=== PATIENT | female | born 1955 | race Caucasian/White ===

== ENCOUNTER → 2019-08-10 13:29 | Outpatient (CLI) | payer BC, SELFPAY ==
--- NOTE | ~2019-08-10 | MM_ITS ---
EXAMINATION: MM screening obed BI w joseph HISTORY: Screening mammogram TECHNIQUE: Craniocaudal and mediolateral oblique 3-D tomosynthesis images were obtained and synthetic 2-D images were generated. CAD analysis was submitted and interpreted. COMPARISON: 06/04/2016 BREAST PARENCHYMAL COMPOSITION: The breasts are heterogeneously dense, which may obscure small masses . FINDINGS: There is no evidence of suspicious mass, calcification, or architectural distortion to sugg est malignancy in either breast. There has been no suspicious interval change. IMPRESSION: 1. No mammographic evidence of malignancy. 2. Recommend routine screening mammography in one year. BI-RADS Category 1: Negative Reviewed, dictated and finalized at location A. [employer]
== END ==
PROVIDERS: Visit Provider Obstetrics & Gynecology
DX: Z12.31 Encounter for screening mammogram for malignant neoplasm of breast (principal)
CPT/HCPCS: 77063; 77067

== ENCOUNTER 2020-12-22 14:41 | Observation (INO) | payer BC, SELFPAY ==
[2020-12-22] VITALS (14 sets, daily range): BP systolic 119–146; BP diastolic 56–73; PULSE 92–105; RESP 10–22; TEMP 35.9–36.7; O2SAT 95–100; BMI 22.1
--- NOTE | ~2020-12-22 | XR_ITS ---
EXAMINATION: XR chest 1V portable EXAM DATE: 12/22/2020 17:04 INDICATION: Palpitation, Near Syncope today, Feeling weak, on dialysis. TECHNIQUE: Portable AP frontal chest x-ray was obtained. There is no prior study for comparison. FINDINGS: Mild hyperinflation. The lungs are clear. There are no pleural effusions. Cardiac silhoue tte is prominent but magnified on this AP technique. There is no pneumothorax suspected. The bones and soft tissues are unremarkable. IMPRESSION: No acute cardiopulmonary findings. Reviewed, dictated and finalized at location A.
--- NOTE | 2020-12-22 14:55 | ECG_ITS ---
Measurements Intervals [place] Rate: 102 P: 65 NH: 131 QRS: 33 QRSD: 83 T: 65 QT: 349 QTc: 456 Interpretive Statements SINUS TACHYCARDIA LEFT ATRIAL ENLARGEMENT INCOMPLETE RIGHT BUNDLE BRANCH BLOCK BORDERLINE R WAVE PROGRESSION, ANTERIOR LEADS BORDERLINE ST-T WAVE ABNORMALITY- LAT/HIGH LAT LEADS BORDERLINE ECG Electronically Signed On 12-22-2020 15:40:00 CDT by iNranjan Engle D.O.
--- NOTE | 2020-12-22 15:37 | ED.GENADULT ---
HPI - General Adult General Chief complaint: Syncope Stated complaint: near syncope Time Seen by Provider: 12/22/20 14:44 Source: patient, family and RN notes reviewed Limitations: no limitations History of Present Illness HPI narrative: Patient is 65 years old white female presents with intermittent passing I would like feeling, left chest pain, started last night, has been off and on since. Patient also vomited twice last night of foamy stuff. History of intermittent cough for the last 2 to 3 weeks. Currently patient feeling that her heart flip flop. History of hypertension, hyperlipidemia, hemodialysis, last 1 was yesterday, the renal failure secondary to unique disease of the kidney. [facility] at [facility], dialysis started on December 01. Patient does not smoke or drink or uses drugs. Patient is fully vaccinated for COVID-19. Patient monitor showing tachycardia 110 -145 beats per minute while I am in the room.. Patient is telling me since the beginning of dialysis and to now not been feeling well, general weakness, long hours sleep, intermittent nausea, intermittent vomiting, palpitation. Tomorrow dialysis was canceled. Patient was told that her body cannot take frequent dialysis. Related Data Home Medications Medication Instructions Recorded Confirmed B complex-vitamin C-folic acid 1 tablet PO DAILY 12/22/20 [Renal Vitamin] calcium citrate [Citracal] 500 mg PO BID 12/22/20 furosemide 80 mg PO DAILY 12/22/20 lisinopril 20 mg PO DAILY 12/22/20 rosuvastatin [Crestor] 40 mg PO DAILY 12/22/20 Allergies Allergy/AdvReac Type Severity Reaction Status Date / Time atorvastatin Allergy Unknown Unknown Verified 12/22/20 14:54 Review of Systems Review of Systems: Narrative: CONSTITUTIONAL: Denies fever, chills, or sweats. EYES: Denies visual changes, redness, or discharge. ENT: Denies rhinorrhea, congestion, sore throat, or otalgia. CARDIOVASCULAR: Denies chest pain, palpitations, or edema. RESPIRATORY: Denies cough or dyspnea. GASTROINTESTINAL: Denies abdominal pain, nausea, vomiting, or diarrhea. GENITOURINARY: Denies dysuria or hematuria. SKIN: Denies rash or itching. MUSCULOSKELETAL: Denies back pain, joint pain, or myalgia. NEUROLOGIC: Denies headache, numbness, or weakness. PSYCHIATRIC: Denies anxiety or depression. [facility] Social History Social History Gender identity (if verbalized by the patient): Female Exam Narrative: Exam Narrative: General appearance: Well-developed, well-nourished Skin: Normal color Head: Normocephalic, nontraumatic Eyes: Clear conjunctiva ENT: Oropharynx normal, ears normal, nose normal Neck: Supple, nontender Chest and respiratory: Airway patent, no respiratory distress, no accessory muscle use Heart: Tachycardia Abdomen: Soft, nontender, no organomegaly, quiet bowel sounds Vascular: Normal peripheral pulses, normal capillary refill. Musculoskeletal: Normal range of motion, nontender back Neurologic: Alert and oriented ?3, CLAIMS REPRESENTATIVE is normal as tested, no gross motor deficit Course Vital Signs Vital signs: Vital Signs Temperature 36.7 C 12/22/20 14:40 Pulse Rate 105 H 12/22/20 14:40 Respiratory Rate 10 L 12/22/20 14:40 Blood Pressure 145/73 H 12/22/20 14:40 Pulse Oximetry 100 12/22/20 14:40 Temperature 36.7 C 12/22/20 14:40 Pulse Rate 103 H 12/22/20 15:02 Respiratory Rate 10 L 12/22/20 14:40 Blood Pressure 146/73 H 12/22/20 15:02 Pulse Oximetry 100 12/22/20 14:40 Medical Decision Making Vital Signs Vital Signs: Vital Signs Temperature 36.7 C 12/22/20 14:40 Pulse Rate 105 H 12/22/20 14:40
[2020-12-22 15:49] LABS: Basophils Absolute Auto 0.1 K/mm3 (0.0-0.1); Basophils Percent Auto 0.5 % (0.2-1.2); Eosinophils Absolute Auto 0.6 K/mm3 (0-0.3); Eosinophils Percent Auto 5.8 % (0-4.4); Hematocrit 30.8 % (37.0-47.0); Immature Granulocyte Absolute 0.02 K/mm3 (0.00-0.031); Immature Granulocyte Percent A 0.2 % (0-0.5); Lymphocytes Absolute Auto 1.55 K/mm3 (0.9-3.2); Lymphocytes Percent Auto 15.6 % (18.3-44.2); Mean Corpuscular HGB Conc 32.5 g/dl (32-36); Mean Corpuscular Hemoglobin 30.1 pg (26-34); Mean Corpuscular Volume 92.8 fl (80-100); Mean Platelet Volume 9.3 fl (7.4-10.4); Monocytes Absolute Auto 1.3 K/mm3 (0.1-0.6); Monocytes Percent Auto 13.4 % (2.6-8.5); Neutrophils Absolute Auto 6.4 K/mm3 (1.3-6.7); Neutrophils Percent Auto 64.5 % (45.5-73.1); Platelet Count Result 165 k/mm3 (150-375); Red Blood Count 3.32 M/mm3 (4.2-5.4); Red Cell Distribution Width 13.8 % (11.5-14.5); White Blood Count 9.9 K/mm3 (4.5-10.0)
[2020-12-22 16:04] LABS: Alanine Aminotransferase 23 U/L (4-35); Albumin Level 4.2 g/dL (3.5-5.1); Alkaline Phosphatase 97 U/L (38-126); Anion Gap 11 mmol/L (8-16); Aspartate Amino Transferase 32 U/L (14-36); Bilirubin,Total 0.7 mg/dL (0.2-1.3); Blood Urea Nitrogen 52 mg/dL (7-17); Calcium 10.3 mg/dL (8.4-10.2); Carbon Dioxide 26 mmol/L (22-30); Chloride 104 mmol/L (98-107); Estimated CRCL calculation 8 ml/min; Estimated Glomerular Filt Rate 8; Glucose 91 mg/dL (65-105); Potassium 3.9 mmol/L (3.4-5.0); Sodium 141 mmol/L (137-145)
[2020-12-22] MEDS: LORazepam (*CRX) 0.5 MG TABLET 1 MG PO (17:19)
[2020-12-22 17:22] LABS: Alanine Aminotransferase 24 U/L (4-35); Albumin Level 4.3 g/dL (3.5-5.1); Alkaline Phosphatase 92 U/L (38-126); Aspartate Amino Transferase 34 U/L (14-36); Bilirubin,Total 0.7 mg/dL (0.2-1.3)
--- NOTE | 2020-12-22 17:30 | PC.NURSE ---
Patient transported to room 244 from ER. Patient moved to the bed and she had a severe left leg spasm. Assisted with stretching and massage. Patients pain eased. She said she has been having these more frequently recently.
--- NOTE | 2020-12-22 18:57 | PC.NURSE ---
Patient states she goes to dialysis Saturday, Saturday and Fridays at [facility].
--- NOTE | 2020-12-22 19:24 | PM.IMHP ---
H&P: HPI History of Present Illness Date/Time: 12/22/20 19:24 This is a 65-year-old female patient who has end-stage renal disease and recently started dialysis December 01 of this year. The patient typically sees her doctors at [facility]. the patient came in today because she felt like she was going to pass out. She said that she had intermittent feelings like this with left chest pain and has been on and off since last night. She also vomited last night foamy stuff. The patient stated that she felt her heart racing and felt like it was flip-flopping in her chest. Her last dialysis was yesterday she typically goes to dialysis on Saturday. Patient was having a heart rate anywhere from 07/03 145 per minute on the monitor in the emergency room. Tomorrow's dialysis was canceled. Nephrology was consulted here. The patient was given Ativan in the emergency room. The patient stated she had a similar episode like this in August in her legal editor at [place] was trying to determine whether not to start her on a beta-chio and they cannot find the cause of her palpitations and rapid heart rate. EKG here shows sinus tachycardia incomplete right bundle-branch. patient is being admitted for observation services on the date of service 12/22/20. Chief Complaint: Near syncopal episode Review of Systems Review of Systems: All systems reviewed & are unremarkable except as noted in HPI and below Constitutional: Constitutional: Reports as per HPI and Reports no additional constitutional complaints Eyes: Eyes: Reports as per HPI and Reports no additional eye complaints ENT: Reports system reviewed and no additional complaints, except as documented and Reports Normal hearing present Cardiovascular: Cardiovascular: Reports no additional cardiovascular complaints Respiratory: Respiratory: Reports no additional respiratory complaints and Reports no additional respiratory complaints Gastrointestinal: Gastrointestinal: Reports as per HPI and Reports no additional gastrointestinal complaints Musculoskeletal: Musculoskeletal: Reports no additional musculoskeletal complaints Integumentary/Breasts: Skin/Breast: Reports system reviewed and no additional complaints, except as docu and Reports as per HPI Neurologic: Reports system reviewed and no additional complaints, except as documented, Reports as per HPI and Reports Normal hearing present Psychiatric: Psychiatric: Reports no additional psychiatric complaints and Reports as per HPI Endocrine: Endocrine: Reports no additional endocrine complaints Hematologic/Lymphatic: Hematologic/Lymphatic: Reports no additional hematologic/lymphatic complaints Allergic/Immunologic: Allergic/Immunologic: Reports no additional allergic/immunologic complaints PMFSH Past Medical History Medical History (Updated 12/22/20 @ 19:52 by Sofia Garcia NP) AV fistula ESRD (end stage renal disease) dialysis Saturday HTN (hypertension) with goal to be determined Hyperlipidemia Surgical History Surgical History (Updated 12/22/20 @ 19:37 by Sofia Garcia NP) History of appendectomy History of tonsillectomy Hx of cholecystectomy Family History Family History (Updated 12/22/20 @ 19:38 by Sofia Garcia NP) Mother Cerebrovascular accident Father Diabetes mellitus Social History Social History (Updated 12/22/20 @ 19:40 by Sofia Garcia NP) Social History: The patient is and lives with him. The patient stated that she quit smoking 30 years ago. she is a full code and she has no children. 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er attorney general for healthcare. Smoking packs per day: 1 Smoking cigarettes per day: 20.0 Smoking status: Former smoker Tobacco type: cigarettes Alcohol intake: former Drinks per week: 2 Substance use: never Substance use type: does not use Gender identity (if verbalized by the pa
[2020-12-22] MEDS: FUROSEMIDE 40 MG TABLET PO (20:28)
[2020-12-22] MEDS: LOSARTAN POTASSIUM 25 MG TABLET PO (20:28)
[2020-12-23] VITALS (22 sets, daily range): BP systolic 80–150; BP diastolic 37–84; PULSE 70–156; RESP 12–22; TEMP 35.9–36.7; O2SAT 97–100; BMI 22.1
--- NOTE | 2020-12-23 | ECHO_ITS ---
Patient Info Name: Guerita Durbin Age: 65 years : 1955 Gender: Female Ht: 62 in Wt: 121 lbs BSA: 1.55 m2 HR: 93 bpm BP: 130 / 57 mmHg Heart Rhythm: Sinus Rhythm Technical Quality: Good Exam Date: 12/23/2020 4:22 PM Exam Location: [facility] Pulmonary Exam Room: [facility] [place] Patient Status: Inpatient Admit Date: 12/22/2020 Staff Ordering Physician: Demetris Galvan MD Mechanical Supervisor: Lupe Collins RDCS Attending Provider: Jose Zamorano MD Referring Physician: Cole WEINBERG; Exam Type: CA echo doppler color flow Study Info Indications - a flutter Complete two-dimensional, color flow and Doppler transthoracic echocardiogram is performed. Summary 1. Complete two-dimensional, color flow and Doppler transthoracic echocardiogram is performed. 2. There is moderate concentric increased left ventricular wall thickness. 3. Left ventricular systolic function is hyperdynamic, estimated at 65-70%. 4. Left atrial chamber dimension is mildly enlarged. 5. No significant valvular abnormalities. Left Ventricle Left ventricular chamber dimension is normal. Left ventricular systolic function is hyperdynamic, estimated at 65-70%. There is moderate concentric increased left ventricular wall thickness. The left ventricular diastolic function is grade II diastolic dysfunction. Right Ventricle Right ventricular chamber dimension is normal. Left Atria Left atrial chamber dimension is mildly enlarged. Right Atria Right atrial chamber dimension is normal. Aortic Valve The aortic valve is normal. Pulmonic Valve The pulmonic valve is normal. Mitral Valve The mitral valve has normal leaflets. There is trace mitral valve regurgitation. Tricuspid Valve The tricuspid valve leaflets are normal. Pericardium/Pleural The pericardium appears normal. Aorta The aortic root size at the sinus of Valsalva is normal. Left Ventricular Outflow Tract Name Value Normal LVOT 2D LVOT Diameter 2.0 cm LVOT Doppler LVOT Peak Gradient 6 mmHg LVOT Mean Gradient 4 mmHg LVOT VTI 23 cm LVOT VTI/AV VTI Ratio 0.7 LVOT Stroke Volume 71 ml LVOT CO 18.0 l/min LVOT CI 11.6 l/min/m2 Pulmonic Valve Name Value Normal PV Doppler PV Peak Gradient 5 mmHg Mitral Valve Name Value Normal MV Doppler MV Decel Arthur 579 cm/s2 MV PHT 5
[2020-12-23 06:20] LABS: Basophils Absolute Auto 0.1 K/mm3 (0.0-0.1); Basophils Percent Auto 0.6 % (0.2-1.2); Eosinophils Absolute Auto 0.7 K/mm3 (0-0.3); Eosinophils Percent Auto 7.1 % (0-4.4); Hematocrit 29.9 % (37.0-47.0); Hemoglobin 9.6 g/dL (12.0-15.0); Immature Granulocyte Absolute 0.03 K/mm3 (0.00-0.031); Immature Granulocyte Percent A 0.3 % (0-0.5); Lymphocytes Absolute Auto 1.69 K/mm3 (0.9-3.2); Lymphocytes Percent Auto 16.9 % (18.3-44.2); Mean Corpuscular HGB Conc 32.1 g/dl (32-36); Mean Corpuscular Hemoglobin 30.1 pg (26-34); Mean Corpuscular Volume 93.7 fl (80-100); Mean Platelet Volume 9.6 fl (7.4-10.4); Monocytes Absolute Auto 1.3 K/mm3 (0.1-0.6); Monocytes Percent Auto 12.8 % (2.6-8.5); Neutrophils Absolute Auto 6.3 K/mm3 (1.3-6.7); Neutrophils Percent Auto 62.3 % (45.5-73.1); Platelet Count Result 177 k/mm3 (150-375); Red Blood Count 3.19 M/mm3 (4.2-5.4); Red Cell Distribution Width 13.7 % (11.5-14.5)
[2020-12-23 06:33] LABS: Alanine Aminotransferase 19 U/L (4-35); Albumin Level 3.7 g/dL (3.5-5.1); Alkaline Phosphatase 80 U/L (38-126); Anion Gap 13 mmol/L (8-16); Aspartate Amino Transferase 24 U/L (14-36); Bilirubin,Total 0.6 mg/dL (0.2-1.3); Blood Urea Nitrogen 60 mg/dL (7-17); Calcium 9.6 mg/dL (8.4-10.2); Carbon Dioxide 23 mmol/L (22-30); Chloride 104 mmol/L (98-107); Estimated CRCL calculation 8 ml/min; Estimated Glomerular Filt Rate 8; Glucose 90 mg/dL (65-105); Potassium 4.2 mmol/L (3.4-5.0); Sodium 140 mmol/L (137-145)
--- NOTE | 2020-12-23 10:07 | ECG_ITS ---
Measurements Intervals [place] Rate: 150 P: SD: 0 QRS: 32 QRSD: 83 T: 60 QT: 256 QTc: 405 Interpretive Statements ATRIAL FLUTTER/TACHYCARDIA WITH RAPID VENTRICULAR RESPONSE INCOMPLETE RIGHT BUNDLE BRANCH BLOCK NONSPECIFIC ST & T-WAVE ABNORMALITY- ANTEROLAT/HIGH LAT LEADS ABNORMAL ECG Electronically Signed On 12-23-2020 13:05:44 CDT by Niranjan Engle D.O.
[2020-12-23 10:16] LABS: Hepatitis B Surface Antigen Negative (Negative)
--- NOTE | 2020-12-23 10:35 | PC.NURSE ---
Patients monitor tech reading SVT, rate at 200's, sustaining. Lulu Barragan called and received orders for metoprolol IVP 5mg X1 prior to transferring patient to IMU. BP checked and is hypotensive, 80's/40's patient complaining of chest pain. Rapid response called.
--- NOTE | 2020-12-23 10:36 | ECG_ITS ---
Measurements Intervals [place] Rate: 96 P: 69 UT: 138 QRS: 30 QRSD: 77 T: 61 QT: 363 QTc: 461 Interpretive Statements SINUS RHYTHM VENTRICULAR PREMATURE COMPLEX POSSIBLE LEFT ATRIAL ENLARGEMENT INCOMPLETE RIGHT BUNDLE BRANCH BLOCK BASELINE ARTIFACT- AVL BORDERLINE ECG Electronically Signed On 12-23-2020 13:06:44 CDT by Niranjan Engle D.O.
[2020-12-23 10:42] LABS: Hepatitis B Surface Anti Res Positive
[2020-12-23 10:54] LABS: Lactic Acid Reflex 1.2 mmol/L (0.7-2.1)
[2020-12-23] MEDS: SODIUM CHLORIDE 0.9% IV 250 ML 999 ML IV CONT (10:55)
--- NOTE | 2020-12-23 10:59 | PC.NURSE ---
This patient, Guerita Durbin, was received from [ 244 into 206-2 ] on 12/23/20 at 1059. Patient/family oriented to unit policies and routines
[2020-12-23] MEDS: VITAMIN B CMPLX/VIT C/FOLIC AC 1 CAPSULE 1 CAP PO (11:08)
[2020-12-23] MEDS: calcitrioL 0.25 MCG CAPSULE PO (11:09)
[2020-12-23] MEDS: ROSUVASTATIN 10 MG TABLET 20 MG PO (11:09)
[2020-12-23 11:13] LABS: Troponin I 0.119 ng/mL (0.000-0.034)
--- NOTE | 2020-12-23 12:28 | PC.NURSE ---
Pt transferred to IMU room 206 per bed. Report given to Geovanny IBARRA.
--- NOTE | 2020-12-23 14:14 | PM.CNNEP ---
Assessment and Plan Assessment and plan (1) ESRD (end stage renal disease): Code(s): N18.6 - End stage renal disease Status: Chronic Assessment and Plan: attempted HD today discontinued due to #2 no critical electrolytes, volume overload, or uremia at this time tentatively plan HD on Saturday if remains hospitalized (2) Tachycardia: Code(s): R00.0 - Tachycardia, unspecified Status: Acute Assessment and Plan: Cardiology consulted follow telemetry (3) Near syncope: Code(s): R55 - Syncope and collapse Status: Acute Assessment and Plan: related to #2(?) follow symptoms while hositalized Will continue to follow. History of Present Illness Reason for Consult Consult date: 12/23/20 Reason for consult: end stage renal disease Chief Complaint Chief complaint: near syncope/hemodialysis patient History of Present Illness Narrative: The patient is a 65-year-old female with a past medical history as outlined below who presented to [facility] ER with complaitns of palpitations and sensation she was going to pass out. The majority of her medical care is through [facility] so I do not have any previous records or information to compare to with regard to her complaints and history. The patient states that she has had intermittent feelings of left chest pain in association with palpitations for the last several days if Not months without a clear etiology. She apparently was seen by Cardiology at [facility] with a possible empiric trial of beta blockers since they were unable to find a specific cause of these symptoms either. She also reports that sometimes during her dialysis treatments she has episodes of palpitations were heart rate goes up to as high as 180 causing her to feel quite bad and ending her dialysis treatment early. Because of these constellation of symptoms, she was admitted the hospital for further evaluation and therapy. Since admission she had been doing reasonably well but then dialysis was attempted earlier today with recurrence of her palpitations and racing heart which was confirmed by telemetry which led to her dialysis treatment being aborted. She since appears to be feeling somewhat better at this time. Renal consultation was requested due to her end-stage renal disease. 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 She is currently training for home hemodialysis at this time as well. Her last dialysis treatment was on Saturday (12/21/20) and there is a concern that she may have had too much fluid removed during that treatment which may potentiate some of these symptoms. Currently, she does not appear in any acute distress at this time. Review of Systems Review of Systems: Narrative: As per HPI. [facility] Past Medical History Medical History (Updated 12/22/20 @ 19:52 by Sofia Garcia NP) AV fistula ESRD (end stage renal disease) dialysis Saturday HTN (hypertension) with goal to be determined Hyperlipidemia Surgical History Surgical History (Updated 12/22/20 @ 19:37 by Sofia Garcia NP) History of appendectomy History of tonsillectomy Hx of cholecystectomy Family History Family History (Updated 12/22/20 @ 19:38 by Sofia Garcia NP) Mother Cerebrovascular accident Father Diabetes mellitus Social History Social History (Updated 12/22/20 @ 19:40 by Sofia Garcia NP) Social History: The patient is and lives with him. The patient stated that she quit smoking 30 years ago. she is a full code and she has no children. 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er securities attorney for heal
--- NOTE | 2020-12-23 14:52 | PM.CNCAR ---
Assessment and Plan Additional Plan This is a 65-year-old lady with: A history of tachycardia and palpitations for something like a couple of years which up until now has not been specifically diagnosed. She had an episode this morning while in the hospital here and she appears to have atypical atrial flutter with rather rapid ventricular response. She gives a very good history of having no other significant heart disease and having negative stress echocardiograms on at least a couple of occasions downtown at [place] for she is followed the list as a renal transplant recipient. She was extremely tachycardic probably resulting in the symptoms of chest pain during this episode. I am going to recommend initiating antiarrhythmic therapy with flecainide. I will start her on 100 mg q.12 hours and this decision will of course keep her in the hospital for a couple of days. If she has a good clinical response she can be discharged and follow up with her verification manager at [facility]. I will order a Doppler echocardiogram while she is here. Demetris Galvan MD [facility] History of Present Illness History of Present Illness Consult date/time: 12/23/20 14:52 Reason For Visit: near syncope/hemodialysis patient Narrative: this is a very pleasant 65-year-old lady that I am seeing at the request of the hospitalist to assist with managing atrial tachyarrhythmias. The patient's electrocardiograms demonstrate evidence of atrial flutter with rapid ventricular response earlier today. She states that she came to the hospital after experiencing symptoms of palpitations with tachycardia couple of times recently over the last several days. She is concerned about this and actually has spoken to the physicians that manage her case at [facility] about symptoms like this on several occasions. She indicated at 1 time she was hospitalized over there with symptoms like this and on telemetry there were no arrhythmias discovered. She has a history of end-stage renal disease she says due to a genetic mutation and is on the renal transplant list at [facility]. She also because of that follows with a verification manager to does periodic stress testing on her. She typically has a stress echo she says about once a year and they are consistently normal. When she has episodes of tachycardia and palpitations she does not have any other significant distress. Today she had an episode in the hospital that occurred while she was at an another unit there was associated with some chest pain she was very tachycardic at that time and her ECG appears to be most consistent with atypical atrial flutter with very rapid ventricular response. She is now spontaneously back in normal sinus rhythm and is essentially asymptomatic. She was 1st told of evidence of significant renal disease when she was in the [place] menopausal years. She states that that was followed for a number of years and became end-stage last month sheath says that on December 01 is when she was started on hemodialysis. Review of Systems Constitutional: Constitutional: Reports weakness Eyes: Eyes: Reports no additional eye complaints ENT: Reports system reviewed and no additional complaints, except as documented Cardiovascular: Cardiovascular: Reports as per HPI and Reports palpitations Respiratory: Respiratory: Reports no additional respiratory complaints Gastrointestinal: Gastrointestinal: Reports no additional gastrointestinal complaints Musculoskeletal: Musculoskeletal: Reports no additional musculoskeletal complaints Integumentary/Breasts: Skin/Breast: Reports system reviewed and no additional complaints, except as docu Endocrine: Endocrine: Reports no additional endocrine complaints Hematologic/Lymphatic: Hematologic/Lymphatic: Reports no additional hematologic/lymphatic complaints Allergic/Immunologic: Allergic/Immunologic: Reports no additional allergic/immunologic complaints [facility] Past Medical History Medical History (Updated
--- NOTE | 2020-12-23 16:47 | PM.IMPN ---
Progress Note: A&P Assessment and Plan (1) Near syncope: Code(s): R55 - Syncope and collapse Status: Acute Assessment and Plan: likely due to her intermittent SVTs. Continue to monitor or telemetry (2) ESRD (end stage renal disease): Code(s): N18.6 - End stage renal disease Status: Chronic Assessment and Plan: Dialysis Saturday. Her dialysis was canceled for tomorrow. I did request for her records from [facility]. We also consulted life insurance underwriter here. She is also on Lasix b.i.d.. (3) HTN (hypertension) with goal to be determined: Code(s): I10 - Essential (primary) hypertension Status: Chronic Assessment and Plan: Continue with losartan (4) Hyperlipidemia: Code(s): E78.5 - Hyperlipidemia, unspecified Status: Chronic Assessment and Plan: continue with Crestor (5) Adjustment disorder with anxiety: Code(s): F43.22 - Adjustment disorder with anxiety Status: Acute Assessment and Plan: patient was given Ativan. (6) Tachycardia: Code(s): R00.0 - Tachycardia, unspecified Status: Acute Assessment and Plan: atrial flutter with RVR which converted spontaneously back to sinus rhythm this morning. Cardiology has been consulted for further evaluation of her rhythm. Echocardiogram ordered similar episodes has started since August and had seen director of development at [place] Subjective Date/time seen: 12/23/20 16:47 Interval history: no overnight event however while she was started on hemodialysis this morning her tachycardia started with her heart rate in 150s EKG showed atrial flutter stats supraventricular tachycardia. Dialysis was aborted due to her tachycardia. She gets symptomatic with this tachycardia with chest pain and palpitation this rhythm spontaneously converted back to sinus rhythm without any intervention. To splint to be started on Cardizem drip however was stopped due to spontaneous conversion to sinus rhythm. She was noted to be hypotensive in 80 systolic post this tachycardic this episode and was given 250 cc bolus of normal saline with subsequent improvement in her blood pressure Review of Systems Review of Systems: All systems reviewed & are unremarkable except as noted in HPI and below Exam Narrative: Exam Narrative: GENERAL: The patient is well developed, not in acute distress HEENT: Nonicteric sclerae, PERRLA, EOMI. Oropharynx clear. Moist mucous membranes. Conjunctivae appear well perfused. CHEST: Chest wall is nontender. HEART: tachycardic in the 150s without murmur, rubs, or gallops LUNGS: Clear to auscultation bilaterally. no respiratory distress ABDOMEN: Soft, positive bowel sounds, non-tender, no organomegaly. SKIN: No rash, no excessive bruising, petechiae, or purpura. NEUROLOGIC: Cranial nerves II-XII intact, alert and oriented x 3, no gross motor deficits EXTREMITIES: no edema, cyanosis or clubbing Objective Data Vital Signs Vital Signs: Vital Signs - 24 hr 12/22/20 16:51 12/22/20 17:00 12/22/20 18:08 Temperature 96.7 F L Pulse Rate 95 100 94 Respiratory Rate 18 18 Blood Pressure 133/63 134/58 L Pulse Oximetry 100 99 12/22/20 20:00 12/22/20 21:37 12/22/20 22:00 Temperature 96.8 F L 96.8 F L 96.8 F L Pulse Rate 99 100 92 Respiratory Rate 18 18 18 Blood Pressure 124/58 L 121/56 L 124/58 L Pulse Oximetry 98 100 98 12/23/20 00:00 12/23/20 04:00 12/23/20 07:18 Temperature 96.8 F L 97.4 F L Pulse Rate 86 90 90 Respiratory Rate 18 18 Blood Pressure 112/57 L 112/58 L 127/56 L Pulse Oximetry 98 97 12/23/20 08:00 12/23/20 09:07 12/23/20 10:25 Temperature 98.1 F Pulse Rate 81 95 Respiratory Rate 18 Blood Pressure 134/74 83/37 L Pulse Oximetry 12/23/20 10:43 12/23/20 11:06 12/23/20 11:10 Temperature 96.6 F L Pulse Rate 108 H 73 Respiratory Rate 22 H 18 Blood Pressure 80/40 L 130/57 L 83/37 L Pulse Oximetry 100 100
[2020-12-23] MEDS: FUROSEMIDE 40 MG TABLET PO (17:06)
[2020-12-23] MEDS: FLECAINIDE ACETATE 100 MG TABLET PO (20:42)
[2020-12-23] MEDS: LOSARTAN POTASSIUM 25 MG TABLET PO (20:42)
[2020-12-24] VITALS (20 sets, daily range): BP systolic 114–128; BP diastolic 54–67; PULSE 72–97; RESP 12–16; TEMP 36.2–36.5; O2SAT 99–100
[2020-12-24 05:47] LABS: Basophils Absolute Auto 0.1 K/mm3 (0.0-0.1); Basophils Percent Auto 0.5 % (0.2-1.2); Eosinophils Absolute Auto 0.7 K/mm3 (0-0.3); Eosinophils Percent Auto 7.3 % (0-4.4); Hematocrit 28.7 % (37.0-47.0); Hemoglobin 9.1 g/dL (12.0-15.0); Immature Granulocyte Absolute 0.03 K/mm3 (0.00-0.031); Immature Granulocyte Percent A 0.3 % (0-0.5); Lymphocytes Absolute Auto 2.23 K/mm3 (0.9-3.2); Lymphocytes Percent Auto 24.5 % (18.3-44.2); Mean Corpuscular HGB Conc 31.7 g/dl (32-36); Mean Corpuscular Volume 94.7 fl (80-100); Mean Platelet Volume 9.4 fl (7.4-10.4); Monocytes Percent Auto 10.9 % (2.6-8.5); Neutrophils Absolute Auto 5.1 K/mm3 (1.3-6.7); Neutrophils Percent Auto 56.5 % (45.5-73.1); Platelet Count Result 183 k/mm3 (150-375); Red Blood Count 3.03 M/mm3 (4.2-5.4); Red Cell Distribution Width 13.7 % (11.5-14.5); White Blood Count 9.1 K/mm3 (4.5-10.0)
[2020-12-24 06:10] LABS: Anion Gap 11 mmol/L (8-16); Blood Urea Nitrogen 58 mg/dL (7-17); Calcium 9.8 mg/dL (8.4-10.2); Carbon Dioxide 26 mmol/L (22-30); Chloride 102 mmol/L (98-107); Estimated CRCL calculation 7 ml/min; Estimated Glomerular Filt Rate 7; Glucose 97 mg/dL (65-105); Potassium 4.4 mmol/L (3.4-5.0); Sodium 139 mmol/L (137-145)
[2020-12-24] MEDS: VITAMIN B CMPLX/VIT C/FOLIC AC 1 CAPSULE 1 CAP PO (08:11)
[2020-12-24] MEDS: ROSUVASTATIN 10 MG TABLET 20 MG PO (08:11)
[2020-12-24] MEDS: FUROSEMIDE 40 MG TABLET PO ×2 (08:11→17:11)
[2020-12-24] MEDS: FLECAINIDE ACETATE 100 MG TABLET PO ×2 (08:11→21:07)
[2020-12-24] MEDS: calcitrioL 0.25 MCG CAPSULE PO (08:11)
--- NOTE | 2020-12-24 11:01 | PM.PNCARD ---
Progress Note: A&P Additional Plan 65-year-old lady with: Intermittent palpitations which is been occurring for a while with no specific diagnosis being established until yesterday when she developed atrial flutter with, atypical atrial flutter with RVR here in the hospital. She has been started on medical antiarrhythmic therapy in the form of flecainide. She has hyperdynamic left ventricular systolic function on echo and has no evidence of coronary disease with a number negative stress test done at [place] for she is on the waiting list for renal transplant. Flecainide will be continued. My anticipation will be discharged tomorrow after she has had her 4th dose if there are no signs of proarrhythmia. She will follow up with her physicians at [place]. She already follows with Cardiology there and so follow-up in our office here would be redundant and will not be scheduled. Demetris Galvan MD [facility] Subjective Date/time seen: date of service:12/24/20 11:01 Interval history: Follow-up visit in this 65-year-old lady with: Atypical atrial flutter with rapid ventricular response noted yesterday. Patient has been placed on medical antiarrhythmic therapy in the form of flecainide. She has had no arrhythmias since the drug was started yesterday she had her 2nd dose this morning. Resting comfortably in bed and reading a book on her computer upon my arrival to see her. Exam Const: General: comfortable and no acute distress HENMT: Mouth: Yes moist mucous membranes Eyes: Sclera: sclerae normal Pupils: Equal, round and reactive pupils present Neck: Neck: supple and no JVD Resp: Effort & Inspection: normal respiratory effort Auscultation: clear to auscultation bilaterally Cardio: Rate: regular rate Rhythm: regular rhythm Other: Grade 2/6 holosystolic murmur at the left sternal border GI: GI Palp: Yes Soft to palpation Auscultation: normal bowel sounds Skin: General skin exam: normal color Neuro: Cognition (Neuro): normal cognition Extrem: General: normal to inspection Objective Data Vital Signs Vital Signs: Vital Signs - 24 hr 12/23/20 11:06 12/23/20 11:10 12/23/20 11:13 Temperature 36.2 C L Pulse Rate 73 70 Respiratory Rate 18 18 Blood Pressure 130/57 L 83/37 L 130/57 L Pulse Oximetry 100 100 07/02/21 12:00 12/23/20 16:00 12/23/20 20:00 Temperature 36.6 C 36.3 C L Pulse Rate 93 88 85 Respiratory Rate 12 16 Blood Pressure 118/58 L 118/56 L Pulse Oximetry 100 100 12/23/20 20:41 12/23/20 20:42 12/23/20 22:00 Temperature Pulse Rate 87 96 Respiratory Rate Blood Pressure 119/62 126/59 L Pulse Oximetry 12/23/20 23:25 12/24/20 00:00 12/24/20 02:00 Temperature 36.4 C Pulse Rate 92 85 72 Respiratory Rate 16 Blood Pressure 116/61 Pulse Oximetry 100 12/24/20 03:42 12/24/20 04:00 12/24/20 06:00 Temperature 36.2 C L Pulse Rate 86 87 83 Respiratory Rate 16 Blood Pressure 114/58 L Pulse Oximetry 100 12/24/20 08:00 12/24/20 08:03 12/24/20 08:04 Temperature 36.4 C Pulse Rate 96 Respiratory Rate 12 Blood Pressure 115/60 116/54 L 120/55 L Pulse Oximetry 100 12/24/20 08:11 12/24/20 09:44 Temperature Pulse Rate 88 83 Respiratory Rate Blood Pressure Pulse Oximetry Intake/Output Intake/Output: Intake & Output 12/21/20 12/22/20 12/23/20 12/24/20 23:59 23:59 23:59 23:59 Intake Total 1120 240 Output Total 500 700 Balance 620 -460 Meds/Results Medications: Active Medications Generic Name Dose Route Start Last Admin Trade Name Mami PRN Reason Stop Dose Admin Calcitriol 0.25 mcg 12/23/20 09:00 12/24/20 08:11 Calcitriol 0.25 Mcg Capsule PO 0.25 mcg DAILY CHASE Administration Flecainide Acetate 100 mg 12/23/20 21:00 12/24/20 08:11 Flecainide Acetate 100 Mg Tablet PO 100 mg Q12HR CHASE Administration Furosemide 40 mg 12/22/20 19:45 12/24/20 08:11 Furosemide 40 Mg Tablet PO 40
--- NOTE | 2020-12-24 11:51 | PM.IMPN ---
Progress Note: A&P Assessment and Plan (1) Near syncope: Code(s): R55 - Syncope and collapse Status: Acute Assessment and Plan: likely due to her intermittent SVTs. Continue to monitor or telemetry Transient hypotension yesterday resolved with fluid bolus Likely due to intermittent atypical atrial flutter noted yesterday in the EKG. (2) ESRD (end stage renal disease): Code(s): N18.6 - End stage renal disease Status: Chronic Assessment and Plan: Dialysis Saturday. Her dialysis was canceled for tomorrow. I did request for her records from [facility]. We also consulted shredder operator here. She is also on Lasix b.i.d. Nephrology following for inpatient dialysis need. (3) HTN (hypertension) with goal to be determined: Code(s): I10 - Essential (primary) hypertension Status: Chronic Assessment and Plan: Continue with losartan (4) Hyperlipidemia: Code(s): E78.5 - Hyperlipidemia, unspecified Status: Chronic Assessment and Plan: continue with Crestor (5) Adjustment disorder with anxiety: Code(s): F43.22 - Adjustment disorder with anxiety Status: Acute Assessment and Plan: patient was given Ativan. (6) Tachycardia: Code(s): R00.0 - Tachycardia, unspecified Status: Acute Assessment and Plan: atrial flutter with RVR which converted spontaneously back to sinus rhythm this morning. Cardiology has been consulted for further evaluation of her rhythm. Echocardiogram ordered similar episodes has started since August and had seen tag maker at [place] Echo reviewed Started on flecainide by cardiology No further episodes since start of flecainide ? Anticoagulation Subjective Date/time seen: 12/24/20 11:51 Interval history: No Overnight events. Patient was placed on flecainide. No further arrhythmias since then her blood pressure was stable. He feels a little dizzy no other complaints. Follow-up visit in this 65-year-old lady with: Review of Systems Review of Systems: All systems reviewed & are unremarkable except as noted in HPI and below Exam Narrative: Exam Narrative: GENERAL: The patient is well developed, not in acute distress HEENT: Nonicteric sclerae, PERRLA, EOMI. Oropharynx clear. Moist mucous membranes. Conjunctivae appear well perfused. CHEST: Chest wall is nontender. HEART: regular rate and rhythm, systolic murmur noted on left sternal border, no rubs, or gallops LUNGS: Clear to auscultation bilaterally. no respiratory distress ABDOMEN: Soft, positive bowel sounds, non-tender, no organomegaly. SKIN: No rash, no excessive bruising, petechiae, or purpura. NEUROLOGIC: Cranial nerves II-XII intact, alert and oriented x 3, no gross motor deficits EXTREMITIES: no edema, cyanosis or clubbing Objective Data Vital Signs Vital Signs: Vital Signs - 24 hr 12/23/20 12:00 12/23/20 16:00 12/23/20 20:00 Temperature 97.9 F 97.4 F L Pulse Rate 93 88 85 Respiratory Rate 12 16 Blood Pressure 118/58 L 118/56 L Pulse Oximetry 100 100 12/23/20 20:41 12/23/20 20:42 12/23/20 22:00 Temperature Pulse Rate 87 96 Respiratory Rate Blood Pressure 119/62 126/59 L Pulse Oximetry 12/23/20 23:25 12/24/20 00:00 12/24/20 02:00 Temperature 97.6 F Pulse Rate 92 85 72 Respiratory Rate 16 Blood Pressure 116/61 Pulse Oximetry 100 12/24/20 03:42 12/24/20 04:00 12/24/20 06:00 Temperature 97.1 F L Pulse Rate 86 87 83 Respiratory Rate 16 Blood Pressure 114/58 L Pulse Oximetry 100 12/24/20 08:00 12/24/20 08:03 12/24/20 08:04 Temperature 97.6 F Pulse Rate 96 Respiratory Rate 12 Blood Pressure 115/60 116/54 L 120/55 L Pulse Oximetry 100 12/24/20 08:11 12/24/20 09:44 Temperature Pulse Rate 88 83 Respiratory Rate Blood Pressure Pulse Oximetry Intake/Output Intake/Output: Intake & Output 12/21/20 12/22/20 12/23/20
--- NOTE | 2020-12-24 12:26 | PM.PNNEP ---
Progress Note: A&P Assessment and Plan (1) ESRD (end stage renal disease): Code(s): N18.6 - End stage renal disease Status: Chronic Assessment and Plan: attempted HD on Saturday but discontinued due to #2 no critical electrolytes, volume overload, or uremia at this time tentatively plan HD on Saturday if remains hospitalized (2) Tachycardia: Code(s): R00.0 - Tachycardia, unspecified Status: Acute Assessment and Plan: due to Aflutter with RVR Cardiology recommendations noted - on flecanide follow telemetry (3) Near syncope: Code(s): R55 - Syncope and collapse Status: Acute Assessment and Plan: related to #2(?) follow symptoms while hositalized Will continue to follow - would not be opposed to discharge tomorrow if otherwise medically stable. Subjective Date/time seen: 12/24/20 12:26 Appears to be doing relatively well; no apparent distress noted at this time; no episodes of syncope to report; telemetry noted atrial flutter with RVR which is the presumable cause of her palpitations/tachycardia. Exam Narrative: Exam Narrative: General: WD/WN female in NAD Heart: normal S1 and S2; no rub Lungs: clear to auscultation Abdomen: soft, nontender, nondistended, positive bowel sounds Extremities: no cyanosis or clubbing; no edema Skin: warm and dry Objective Data Vital Signs Vital Signs: Vital Signs Temp Pulse Resp BP Pulse Ox 12/24/20 11:58 36.4 C 85 12 124/63 100 12/24/20 09:44 83 12/24/20 08:11 88 12/24/20 08:04 120/55 L 12/24/20 08:03 116/54 L 12/24/20 08:00 36.4 C 96 12 115/60 100 12/24/20 06:00 83 12/24/20 04:00 87 12/24/20 03:42 36.2 C L 86 16 114/58 L 100 12/24/20 02:00 72 12/24/20 00:00 85 12/23/20 23:25 36.4 C 92 16 116/61 100 12/23/20 22:00 96 12/23/20 20:42 87 126/59 L 12/23/20 20:41 119/62 12/23/20 20:00 36.3 C L 85 16 118/56 L 100 12/23/20 16:00 36.6 C 88 12 118/58 L 100 Intake/Output Intake/Output: Intake & Output 12/21/20 12/22/20 12/23/20 12/24/20 23:59 23:59 23:59 23:59 Intake Total 1120 240 Output Total 500 700 Balance 620 -460 Meds/Results Medications: Active Medications Generic Name Dose Route Start Last Admin Trade Name Mami PRN Reason Stop Dose Admin Calcitriol 0.25 mcg 12/23/20 09:00 12/24/20 08:11 Calcitriol 0.25 Mcg Capsule PO 0.25 mcg DAILY CHASE Administration Flecainide Acetate 100 mg 12/23/20 21:00 12/24/20 08:11 Flecainide Acetate 100 Mg Tablet PO 100 mg Q12HR CHASE Administration Furosemide 40 mg 12/22/20 19:45 12/24/20 08:11 Furosemide 40 Mg Tablet PO 40 mg BID CHASE Administration Albumin Human 50 mls @ 999 mls/hr 12/23/20 06:50 Albutein IVPB 01/22/21 06:51 Q10M PRN HYPOTENSION Lidocaine/Prilocaine 1 each 12/22/20 19:25 Lidocaine/Prilocaine Cream 2.5-2.5% Tube TOPICAL PRN PRN PRIOR TO DIALYSIS Losartan Potassium 25 mg 12/22/20 21:00 12/23/20 20:42 Losartan Potassium 25 Mg Tablet PO 25 mg HS CHASE Administration Rosuvastatin Calcium 20 mg 12/23/20 09:00 12/24/20 08:11 Rosuvastatin 10 Mg Tablet PO 20 mg DAILY CHASE Administration Vitamin B Complex/Folic Acid 1 cap 12/23/20 09:00 12/24/20 08:11 Vitamin B Cmplx/Vit C/Folic Ac 1 Capsule PO 01/22/21 09:01 1 cap DAILY CHASE Administration Radiology Results: ITS Impressions Chest X-Ray 12/22/20 17:11 IMPRESSION: No acute cardiopulmonary findings. Labs Labs: Laboratory Tests 12/24/20 04:51 12/24/20 04:51
[2020-12-24] MEDS: LOSARTAN POTASSIUM 25 MG TABLET PO (21:07)
[2020-12-25] VITALS (9 sets, daily range): BP systolic 108–122; BP diastolic 46–63; PULSE 79–82; RESP 14–16; TEMP 35.7–36.4; O2SAT 100
[2020-12-25 05:35] LABS: Basophils Absolute Auto 0.1 K/mm3 (0.0-0.1); Basophils Percent Auto 0.6 % (0.2-1.2); Eosinophils Absolute Auto 0.6 K/mm3 (0-0.3); Eosinophils Percent Auto 5.7 % (0-4.4); Hemoglobin 8.9 g/dL (12.0-15.0); Immature Granulocyte Absolute 0.04 K/mm3 (0.00-0.031); Immature Granulocyte Percent A 0.4 % (0-0.5); Lymphocytes Absolute Auto 2.27 K/mm3 (0.9-3.2); Lymphocytes Percent Auto 22.9 % (18.3-44.2); Mean Corpuscular HGB Conc 31.8 g/dl (32-36); Mean Corpuscular Volume 94.3 fl (80-100); Mean Platelet Volume 9.3 fl (7.4-10.4); Monocytes Absolute Auto 0.9 K/mm3 (0.1-0.6); Monocytes Percent Auto 9.1 % (2.6-8.5); Neutrophils Absolute Auto 6.1 K/mm3 (1.3-6.7); Neutrophils Percent Auto 61.3 % (45.5-73.1); Platelet Count Result 198 k/mm3 (150-375); Red Blood Count 2.97 M/mm3 (4.2-5.4); Red Cell Distribution Width 13.5 % (11.5-14.5); White Blood Count 9.9 K/mm3 (4.5-10.0)
[2020-12-25 06:03] LABS: Anion Gap 14 mmol/L (8-16); Blood Urea Nitrogen 73 mg/dL (7-17); Carbon Dioxide 23 mmol/L (22-30); Chloride 100 mmol/L (98-107); Estimated CRCL calculation 6 ml/min; Estimated Glomerular Filt Rate 6; Glucose 94 mg/dL (65-105); Potassium 4.4 mmol/L (3.4-5.0); Sodium 137 mmol/L (137-145)
[2020-12-25] MEDS: VITAMIN B CMPLX/VIT C/FOLIC AC 1 CAPSULE 1 CAP PO (08:57)
[2020-12-25] MEDS: ROSUVASTATIN 10 MG TABLET 20 MG PO (08:57)
[2020-12-25] MEDS: FLECAINIDE ACETATE 100 MG TABLET PO (08:58)
[2020-12-25] MEDS: calcitrioL 0.25 MCG CAPSULE PO (08:58)
[2020-12-25] MEDS: FUROSEMIDE 40 MG TABLET PO (08:58)
--- NOTE | 2020-12-25 10:44 | PM.PNCARD ---
Progress Note: A&P Additional Plan 65-year-old lady with: History of intermittent tachy palpitations previously even eating diagnosis now she has been found to have atypical atrial flutter. She has been started on flecainide and seems to be tolerating the medication she has no sign of any proarrhythmia and I would recommend allowing her to be discharged today. She does have follow-up with physicians at [place] including the cardiology department and therefore does not require follow-up for this in my office here at [place]. She will be followed by the Nephrology / transplant service at [facility] as she is a candidate for a renal transplant as well. Demetris Galvan MD [facility] Subjective Date/time seen: date of service:12/25/20 10:44 Interval history: Follow-up visit in this 65-year-old lady with: Atypical atrial flutter with rapid ventricular response noted yesterday. Patient has been placed on medical antiarrhythmic therapy in the form of flecainide. She has had no arrhythmias since the drug was started yesterday she had her 2nd dose this morning. Resting comfortably in bed and reading a book on her computer upon my arrival to see her. Date of service 12/25/2020: The patient is offering no cardiovascular complaints or concerns. She does have the sense of nonspecific generalized weakness but no specific complaints. Telemetry looks fine since being placed on flecainide. Exam Const: General: comfortable and no acute distress Other: Very pleasant fit appearing lady thin no apparent distress of any kind. Visiting with her family upon entering the room. HENMT: Mouth: Yes moist mucous membranes Eyes: Sclera: sclerae normal Pupils: Equal, round and reactive pupils present Neck: Neck: supple and no JVD Other: Right carotid bruit is audible Resp: Effort & Inspection: normal respiratory effort Auscultation: clear to auscultation bilaterally Cardio: Rate: regular rate Rhythm: regular rhythm Other: Grade 2/6 holosystolic murmur at the left sternal border GI: Auscultation: normal bowel sounds Skin: General skin exam: normal color Neuro: Cranial nerves: Yes Equal, round and reactive pupils present Cognition (Neuro): normal cognition Extrem: General: normal to inspection Other: no edema good distal pulses. Objective Data Vital Signs Vital Signs: Vital Signs - 24 hr 12/24/20 11:58 12/24/20 12:00 12/24/20 14:00 Temperature 36.4 C Pulse Rate 85 93 97 Respiratory Rate 12 Blood Pressure 124/63 Pulse Oximetry 100 12/24/20 15:47 12/24/20 16:00 12/24/20 17:36 Temperature 36.5 C Pulse Rate 88 88 82 Respiratory Rate 14 Blood Pressure 115/67 Pulse Oximetry 100 12/24/20 20:00 12/24/20 21:07 12/24/20 22:00 Temperature 36.2 C L Pulse Rate 88 84 81 Respiratory Rate 16 Blood Pressure 128/64 Pulse Oximetry 100 12/24/20 23:09 12/25/20 00:00 12/25/20 02:00 Temperature 36.3 C L Pulse Rate 85 82 82 Respiratory Rate 16 Blood Pressure 115/54 L Pulse Oximetry 99 12/25/20 04:00 12/25/20 06:00 12/25/20 08:00 Temperature 36.4 C L 35.7 C L Pulse Rate 82 81 82 Respiratory Rate 16 14 Blood Pressure 122/53 L 121/63 Pulse Oximetry 100 100 12/25/20 09:17 12/25/20 09:18 12/25/20 10:00 Temperature Pulse Rate 82 Respiratory Rate Blood Pressure 108/46 L 111/49 L Pulse Oximetry Intake/Output Intake/Output: Intake & Output 12/22/20 12/23/20 12/24/20 12/25/20 23:59 23:59 23:59 23:59 Intake Total 1120 1270 240 Output Total 500 1300 1200 Balance 586 -42 -008 Meds/Results Medications: Active Medications Generic Name Dose Route Start Last Admin Trade Name Mami PRN Reason Stop Dose Admin Calcitriol 0.25 mcg 12/23/20 09:00 12/25/20 08:58 Calcitriol 0.25 Mcg Capsule PO 0.25 mcg DAILY CHASE Administration Flecainide Acetate 100 mg 12/23/20 21:00 12/25/20 08:58 Flecainide Acetate 100 Mg Tablet PO 100 mg Q12HR
--- NOTE | 2020-12-25 12:33 | PM.DS ---
DS: Admitting Diagnosis Admitting Diagnosis Admitting Diagnosis: Near syncope End stage renal disease on dialysis Tachycardia DS: Discharge Diagnosis Discharge Diagnosis (1) Near syncope: Code(s): R55 - Syncope and collapse Status: Acute Assessment and Plan: likely due to her intermittent SVTs. Continue to monitor or telemetry Transient hypotension yesterday resolved with fluid bolus Likely due to intermittent atypical atrial flutter noted yesterday in the EKG. (2) ESRD (end stage renal disease): Code(s): N18.6 - End stage renal disease Status: Chronic Assessment and Plan: Dialysis Saturday. Her dialysis was canceled for tomorrow. I did request for her records from [facility]. We also consulted material control clerk here. She is also on Lasix b.i.d. Nephrology following for inpatient dialysis need. (3) HTN (hypertension) with goal to be determined: Code(s): I10 - Essential (primary) hypertension Status: Chronic Assessment and Plan: Continue with losartan (4) Hyperlipidemia: Code(s): E78.5 - Hyperlipidemia, unspecified Status: Chronic Assessment and Plan: continue with Crestor (5) Adjustment disorder with anxiety: Code(s): F43.22 - Adjustment disorder with anxiety Status: Acute Assessment and Plan: patient was given Ativan. (6) Tachycardia: Code(s): R00.0 - Tachycardia, unspecified Status: Acute Assessment and Plan: atrial flutter with RVR which converted spontaneously back to sinus rhythm this morning. Cardiology has been consulted for further evaluation of her rhythm. Echocardiogram ordered similar episodes has started since August and had seen ballroom dancer at [place] Echo reviewed Started on flecainide by cardiology No further episodes since start of flecainide ? Anticoagulation DS: Summary Hospital Course Reason for hospitalization: near syncope Hospital Course: 65 years old female with history of multiple medical problems admitted complains of having a syncopal episode, patient was found tachyarrhythmias. Patient also history of ESRD. Cardiology was consulted patient can get benefit from flecainide. Patient tolerated for flecainide treatment very well. Today patient is feeling better so patient discharged stable condition. Status at Discharge Cognitive/behavioral status at discharge: Stable Functional status at discharge: independent ambulation Overall status at discharge: patient is back to baseline Time Spent with Patient Time attestation: Total time spent providing and/or coordinating discharge services: Time spent: Less than 30 minutes Exam Narrative: Exam Narrative: GENERAL: The patient is well developed, not in acute distress HEENT: Nonicteric sclerae, PERRLA, EOMI. Oropharynx clear. Moist mucous membranes. Conjunctivae appear well perfused. CHEST: Chest wall is nontender. HEART: regular rate and rhythm, systolic murmur noted on left sternal border, no rubs, or gallops LUNGS: Clear to auscultation bilaterally. no respiratory distress ABDOMEN: Soft, positive bowel sounds, non-tender, no organomegaly. SKIN: No rash, no excessive bruising, petechiae, or purpura. NEUROLOGIC: Cranial nerves II-XII intact, alert and oriented x 3, no gross motor deficits EXTREMITIES: no edema, cyanosis or clubbing Const: General: cooperative, healthy appearing, comfortable, no acute distress, well developed, alert, awake and Physically active Nutritional Appearance: average body habitus and well nourished Orientation/consciousness: oriented to person, oriented to place, oriented to time and patient oriented x3 Limitations: no limitations HENMT: Head: normal to inspection, No palpable skull fracture present, normocephalic and atraumatic Ears: hearing grossly normal bilaterally and external ears normal General nose exam: Normal external nose present and Normal nares present Eyes: General:
== END 2020-12-25 13:27 | disposition home or self-care (01) ==
LOC: ANHED 16:44 → ANH2MED 12-23 09:44 → ANHIMU 12-25 12:32 → ANH2MED 12-28 11:57 → ANHIMU 12-28 11:57
PROVIDERS: Internal Medicine Nephrology; Nurse Practitioner; Admitting Provider Internal Medicine; Emergency Provider Emergency Medicine; PCP Family Medicine Sports Medicine; Visit Provider Internal Medicine
DX: R55 Syncope and collapse (principal); I48.4 Atypical atrial flutter; I12.0 Hypertensive chronic kidney disease with stage 5 chronic kidney disease or end stage renal disease; N18.6 End stage renal disease; I95.9 Hypotension, unspecified; E78.5 Hyperlipidemia, unspecified; F43.22 Adjustment disorder with anxiety; Z90.49 Acquired absence of other specified parts of digestive tract; Z99.2 Dependence on renal dialysis; Z87.891 Personal history of nicotine dependence
CPT/HCPCS: 36415; 71045; 80048; 80053; 80076; 83605; 83735; 84443; 84484; 85025; 86706; 87340; 93005; 93306; 99285; A9270; G0257; G0378; J0131; J7030

== ENCOUNTER 2022-04-20 16:00 | Outpatient (CLI) | payer BC, SELFPAY ==
--- NOTE | 2022-04-20 16:14 | ECG_ITS ---
Measurements Intervals [place] Rate: 93 P: 67 DC: 139 QRS: 57 QRSD: 80 T: 79 QT: 329 QTc: 410 Interpretive Statements SINUS RHYTHM POSSIBLE RIGHT ATRIAL ENLARGEMENT [0.25mV P WAVE] POSSIBLE LEFT ATRIAL ENLARGEMENT [-0.1mV P WAVE IN V1/V2] RSR' IN V1/V2 NONSPECIFIC T-WAVE ABNORMALITY BORDERLINE ECG COMPARED TO ECG 12/23/2020 10:44:18 T-WAVE ABNORMALITY NOW PRESENT Electronically Signed On 04-20-2022 17:11:05 CDT by [place] M.D.
== END 2022-04-20 16:01 | disposition home or self-care (01) ==
LOC: ANHCARD 16:03
PROVIDERS: PCP Family Medicine Sports Medicine
DX: I48.0 Paroxysmal atrial fibrillation (principal); R00.0 Tachycardia, unspecified; R94.31 Abnormal electrocardiogram [ECG] [EKG]
CPT/HCPCS: 93005

== ENCOUNTER 2024-01-13 10:58 | Emergency (ER) | payer BC, SELFPAY ==
[2024-01-13] VITALS (7 sets, daily range): BP systolic 132–188; BP diastolic 56–72; PULSE 71; RESP 22; TEMP 36.3; O2SAT 98–100
--- NOTE | ~2024-01-13 | CT_ITS ---
CT abdomen pelvis wo con Ordering provider: Jelani Pisano MD History: 68 years Female with . abdominal pain LUQ . Comparison: None. Technique: CT abdomen and pelvis without IV and without oral contrast. Automated exposure control and iterative reconstruction technique were employed. The dose-length product was 243.08 mGy-cm. Findings: VISUALIZED LOWER CHEST: Normal. UPPER ABDOMINAL ORGANS: Liver: Normal. Gallbladder: Status post cholecystectomy. Spleen: Normal. Stomach/duodenum: Normal. Pancreas: Normal. Adrenals: Normal. Kidneys: Atrophic kidneys with large left renal cyst measuring 3.9 x 3.9 cm with calcification. Other smaller cysts are seen in the left kidney. Transplanted kidney in the right iliac fossa area. Cyst is seen in the transplanted kidney measuring 1.9 x 2.9 CNM. PELVIC ORGANS: The bladder is normal. BOWEL AND MESENTERY: Colon: Mild sigmoid diverticulosis without diverticulitis. Normal appendix. Small Bowel: Normal. No obstruction. Peritoneum/mesentery: No free air. Minimal pelvic Free fluid. Minimal fluid around the liver. Low low with no abnormal contrast. The dens and foot did not midzone. Intra-abdominal and No mesenteric lymp hadenopathy. RETROPERITONEUM: Mild atheromatous disease of the abdominal aorta. No retroperitoneal lymphadenopat hy. MUSCULOSKELETAL: Superficial soft tissues: The superficial soft tissues are normal. Bones: Normal spine. IMPRESSION: 1. Atrophic [place] kidneys with right pelvic transplanted kidney. Largest cyst in the left [place] ki dney with calcification suggestive of Bosniak type II. 2. Cyst in the right transplanted kidney. No evidence of diverticulitis, appendicitis or intestinal obstruction. 3. Minimal free fluid in the pelvis and around the liver. Reviewed, dictated and finalized at location A. IMPRESSION: 1. Atrophic [place] kidneys with right pelvic transplanted kidney. Largest cyst in the left [place] kidney with calcification suggestive of Bosniak type II. 2. Cyst in the right transplanted kidney. No evidence of diverticulitis, appen dicitis or intestinal obstruction. 3. Minimal free fluid in the pelvis and around the liver.
--- NOTE | 2024-01-13 11:58 | ED.ABDPAIN ---
HPI - Abdominal Pain General Chief Complaint: Abdominal Pain Stated Complaint: left side ab. pain Time Seen by Provider: 01/13/24 11:25 Source: patient Mode of arrival: ambulatory Limitations: no limitations History of Present Illness HPI narrative: patient is a 68-year-old female with a significant past medical history that presents today for abdominal pain. Patient has left upper quadrant abdominal pain. She states that this started yesterday. She does have extensive history of kidney problems and a kidney transplant and currently takes immunosuppressive medication. She denies any vomiting but has had some nausea and the pain as stated is in the left upper quadrant. She has had a little bit diarrhea as well. Denies any constipation. Denies hematochezia. MD elicited complaint: abdominal pain Pertinent past history: none Onset (ago): day(s) Pain Consistency: intermittent Location: LUQ Severity: mild Pain scale (0-10): 6 Quality: aching Radiation: none Migration to: no migration Exacerbating factors: medication Relieving factors: nothing Associated symptoms: denies other symptoms Related Data Home Medications Medication Instructions Recorded Confirmed rosuvastatin 40 mg tablet (Crestor) 20 mg PO DAILY 12/22/20 01/13/24 apixaban 5 mg tablet (Eliquis) 5 mg PO BID 01/13/24 01/13/24 azathioprine 50 mg tablet 50 mg PO BID 01/13/24 01/13/24 nitrofurantoin 100 mg PO BID 01/13/24 01/13/24 monohydrate/macrocrystals 100 mg capsule prednisone 5 mg tablet 5 mg PO DAILY 01/13/24 01/13/24 sotalol 80 mg tablet 80 mg PO DAILY 01/13/24 01/13/24 tacrolimus 0.75 mg tablet,extended 0.75 mg PO BID 01/13/24 01/13/24 release 24 hr (Envarsus XR) Allergies Allergy/AdvReac Type Severity Reaction Status Date / Time atorvastatin Allergy Unknown Unknown Verified 12/22/20 18:51 Review of Systems Review of Systems: All systems reviewed & are unremarkable except as noted in HPI and below Constitutional: Constitutional: Reports as per HPI Eyes: Eyes: Reports no additional eye complaints ENT: Reports system reviewed and no additional complaints, except as documented Cardiovascular: Cardiovascular: Reports no additional cardiovascular complaints Respiratory: Respiratory: Reports no additional respiratory complaints Gastrointestinal: Gastrointestinal: Reports as per HPI and Reports abdominal pain Genitourinary: Genitourinary: Reports no additional female genitourinary complaints Musculoskeletal: Musculoskeletal: Reports no additional musculoskeletal complaints Integumentary/Breasts: Skin/Breast: Reports system reviewed and no additional complaints, except as docu Neurologic: Reports system reviewed and no additional complaints, except as documented Psychiatric: Psychiatric: Reports no additional psychiatric complaints Endocrine: Endocrine: Reports no additional endocrine complaints Hematologic/Lymphatic: Hematologic/Lymphatic: Reports no additional hematologic/lymphatic complaints Allergic/Immunologic: Allergic/Immunologic: Reports no additional allergic/immunologic complaints [facility] Past Medical History Medical History AV fistula ESRD (end stage renal disease) dialysis Saturday HTN (hypertension) with goal to be determined Hyperlipidemia Surgical History Surgical History History of appendectomy History of tonsillectomy Hx of cholecystectomy Family History Family History Mother Cerebrovascular accident Father Diabetes mellitus Social History Social History Social History: The patient is and lives with him. The patient stated that she quit smoking 30 years ago. she is a full code and she has no children. 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
--- NOTE | 2024-01-13 11:59 | PC.NURSE ---
Pt in gown, resting comfortably in stretcher. Call light within reach.
[2024-01-13 12:00] LABS: Appearance Urine Clear (Clear); Bilirubin Urine Negative (Negative); Blood Urine Trace-intact (Negative); Color Urine Light Yellow (Yellow); Glucose Urine UA Negative (Negative); Ketones Urine Negative (Negative); Leukocyte Esterase Ur Negative LEU/UL (Negative); Nitrate Urine Negative (Negative); Protein Urine Negative (Negative); Specific Grav Ur <= 1.005 (1.010-1.020); Urobilinogen Urine 0.2 mg/dL (0.2-1.0); pH Urine 5.5 (5.0-8.0)
[2024-01-13 12:01] LABS: Basophils Absolute Auto 0.01 K/mm3 (0.00-0.10); Basophils Percent Auto 0.2 % (0.0-1.0); Eosinophils Absolute Auto 0.03 K/mm3 (0.02-0.50); Eosinophils Percent Auto 0.5 % (1.0-6.0); Hematocrit 38.1 % (35.0-42.0); Hemoglobin 12.8 g/dL (11.7-13.8); Immature Granulocyte Absolute 0.02 K/mm3 (0.00-0.00); Immature Granulocyte Percent A 0.3 % (0.0-0.0); Lymphocytes Absolute Auto 1.27 K/mm3 (1.10-4.50); Lymphocytes Percent Auto 21.2 % (18.0-42.0); Mean Corpuscular HGB Conc 33.6 g/dL (32-36); Mean Corpuscular Volume 101.1 fL (78.0-102.0); Mean Platelet Volume 9.2 fl (9.2-11.8); Monocytes Absolute Auto 0.76 K/mm3 (0.10-0.90); Monocytes Percent Auto 12.7 % (2.0-11.0); Neutrophils Percent Auto 65.1 % (50.0-70.0); Platelet Count Result 128 K/mm3 (150-420); Red Blood Count 3.77 M/mm3 (4.20-5.40); Red Cell Distribution Width 14.6 % (11.6-14.4)
[2024-01-13 12:06] LABS: Add Urine Microscopic? YES; Bacteria Urine Trace /hpf; RBC Urine 0-2 /hpf (0-2); Squamous Epithelial Cell Urine Rare /hpf (Few); WBC Urine None seen /hpf (0-3)
[2024-01-13 12:17] LABS: Alanine Aminotransferase 14 U/L (14-59); Albumin Level 4.1 g/dL (3.4-5.0); Alkaline Phosphatase 68 U/L (46-116); Anion Gap 7 mmol/L (4-12); Aspartate Amino Transferase 16 U/L (15-37); Bilirubin,Total 1.1 mg/dL (0.00-1.00); Blood Urea Nitrogen 18 mg/dL (7-18); Calcium 9.9 mg/dL (8.5-10.1); Carbon Dioxide 28 mmol/L (21-32); Chloride 100 mmol/L (98-108); Estimated CRCL calculation 34 ml/min; Estimated Glomerular Filt Rate 50; Glucose 101 mg/dL (70-99); Lipase 38 U/L (16-77); Osmolality Calculated 281 mOsm/kg (285-295); Potassium 4.4 mmol/L (3.5-5.1); Sodium 135 mmol/L (136-145); Total Protein 6.8 g/dL (6.4-8.2)
[2024-01-13] MEDS: ONDANSETRON INJ 4 MG/2 ML VIAL IV PUSH (12:20)
[2024-01-13 12:24] LABS: Lactic Acid Reflex 0.6 mmol/L (0.4-2.0)
[2024-01-13] MEDS: SODIUM CHLORIDE 0.9% IV 1,000 ML 999 ML IV CONT (12:29)
--- NOTE | 2024-01-13 12:38 | PC.NURSE ---
Pt. drove self to ER. No one available to give her a ride home. Refused morphine.
--- NOTE | 2024-01-13 12:39 | PC.NURSE ---
Pt insisted on taking anti-rejection medication and eating crackers with it. Pt advised of risks prior to test results being received. ERP notified.
--- NOTE | 2024-01-13 13:33 | PC.NURSE ---
Pt resting comfortably. Call light within reach.
== END 2024-01-13 14:17 | disposition home or self-care (01) ==
PROVIDERS: Emergency Provider Family Medicine; PCP Family Medicine Sports Medicine
DX: K57.90 Diverticulosis of intestine, part unspecified, without perforation or abscess without bleeding (principal); I12.0 Hypertensive chronic kidney disease with stage 5 chronic kidney disease or end stage renal disease; N18.6 End stage renal disease; E78.5 Hyperlipidemia, unspecified; Z79.899 Other long term (current) drug therapy; Z79.01 Long term (current) use of anticoagulants
CPT/HCPCS: 36415; 74176; 80053; 81001; 83605; 83690; 85025; 96361; 96374; 99284; J2405; J7030

== ENCOUNTER 2024-02-10 09:20 | Outpatient (CLI) | payer BC, SELFPAY ==
--- NOTE | ~2024-02-10 | US_ITS ---
COMPLETE ABDOMINAL ULTRASOUND Ordering provider: Michelle Davila, DO History: . end stage renal disease . Comparison: None. FINDINGS: LIVER: Normal size and echotexture. No focal hepatic lesions or perihepatic fluid collections are jamey ntified. Normal portal vein flow GALLBLADDER: Surgically removed. BILIARY DUCTS: No evidence for intra or extrahepatic biliary dilation. Common bile duct measures 8 mm in diameter which is within normal limits. PANCREAS: Normal echotexture and size. SPLEEN: Normal size, echotexture and contour and measures 8.4 cm in length. KIDNEYS: Right pelvic transplanted kidney measures 11.5x 5.3x 3.9 cm in length and the left 8.5x 3x 3 .9 cm in length. There is no evidence for hydronephrosis, solid renal mass, renal calculi or perineph isabel fluid collections. Right renal cyst measures 3.2 x 2.9 x 2.7 cm. Pain left kidney shows increased echogenicity with atrophic changes. Cyst is seen in the left kidney measuring 3.8x 3.7x 3.4 cm. UPPER ABDOMINAL AORTA: Normal in caliber. Proximal aorta measures 1.7 cm. Mid aorta measures 1.6 cm. Distal aorta measures 1.6 cm. IVC: Patent. FREE FLUID: None. IMPRESSION: Transplanted pelvic right kidney with atrophic left kidney. Bilateral simple renal cysts. Reviewed, dictated and finalized at location A. IMPRESSION: Transplanted pelvic right kidney with atrophic left kidney. Bilateral simple re nal cysts.
--- NOTE | ~2024-02-10 | US_ITS ---
US pelvic complete w TV Ordering provider: Michelle Davila, DO History: . pelv pain, hx uti . Comparison: None. Technique: Transabdominal and endovaginal ultrasound of the pelvis (Doppler ultrasound interrogation techniques used as needed for this exam.) FINDINGS: CERVIX: Normal. UTERUS: Measures 6.7x 3.1x 2.7 cm in length which is within normal limits and is anteverted. No myom etrial masses. Calcifications are seen in the uterine wall ENDOMETRIUM: Normal in thickness measuring 5 mm. No endometrial masses, cysts or fluid. CUL DE SAC: No free fluid. RIGHT OVARY: Not visualized LEFT OVARY: Not visualized. ADNEXA: Normal. No mass. IMPRESSION: Uterine Calcifications. Nonvisualization of the ovaries. Otherwise, normal pelvic ultrasound. Reviewed, dictated and finalized at location A. IMPRESSION: Uterine Calcifications. Nonvisualization of the ovaries. Otherwise, normal pelv ic ultrasound.
== END 2024-02-10 09:21 ==
PROVIDERS: Visit Provider Family Medicine Sports Medicine
DX: R35.0 Frequency of micturition (principal); N18.6 End stage renal disease; Z94.0 Kidney transplant status; N28.1 Cyst of kidney, acquired
CPT/HCPCS: 76700; 76830; 76856

== ENCOUNTER 2024-05-27 11:14 | Outpatient (CLI) | payer BC, SELFPAY ==
--- NOTE | ~2024-05-27 | US_ITS ---
EXAMINATION: US pelvic complete w TV DATE: 05/27/2024 11:43 INDICATION: Postmenopausal bleeding TECHNIQUE: Multiple transabdominal and endovaginal sonographic images of the pelvis were obtained. COMPARISON: 02/10/2024 FINDINGS: The uterus measures 5.9 x 2.8 x 2.3 cm. The endometrial complex measures 3 mm in thickness. Again se en are few scattered myometrial cysts and coarse shadowing calcifications which could be seen with ch ronic degenerated fibroids. The bilateral ovaries are not visualized. There is no free fluid in the p robyn. IMPRESSION: 1. No interval change in a chronic coarse myometrial calcifications and subcentimeter cysts. Endometr ial complex measures 3 mm thickness which is normal. Reviewed, dictated and finalized at location A. IGN SERVICE TEACHER IMPRESSION: 1. No interval change in a chronic coarse myometrial calcifications and subcent imeter cysts. Endometrial complex measures 3 mm thickness which is normal.
== END 2024-05-27 11:15 | disposition home or self-care (01) ==
PROVIDERS: PCP Obstetrics & Gynecology; Visit Provider Family Medicine Sports Medicine
DX: M61.48 Other calcification of muscle, other site (principal); N85.8 Other specified noninflammatory disorders of uterus; N95.0 Postmenopausal bleeding
CPT/HCPCS: 76830; 76856

== ENCOUNTER 2024-07-06 21:28 | Emergency (ER) | payer BC, SELFPAY ==
--- NOTE | ~2024-07-06 | CT_ITS ---
CLINICAL INDICATION: Lower abdominal pain COMPARISON: 01/13/2024. TECHNIQUE: Multiple contiguous axial images of the abdomen and pelvis were performed without the admi nistration of intravenous contrast The dose-length product (DLP) was 358.60 mGy-cm. Automated exposure control and iterative reconstruction technique were employed. FINDINGS/OBSERVATIONS: Visualized lower thorax: The bilateral lung bases are clear. The heart is of normal size, without pericardial effusion. Small hiatal hernia is present. Liver: The liver demonstrates homogeneous attenuation and is not enlarged measuring 15 cm in longitudinal di mension. Gallbladder and biliary system: The gallbladder is surgically absent. Pancreas: Limited evaluation of the pancreas secondary to the lack of intravenous contrast. Spleen: The spleen demonstrates homogeneous attenuation and is not enlarged measuring 8.4 cm in longitudinal dimension. Kidneys: The bilateral [place] kidneys are markedly atrophic with stable (most likely) cysts. Right lower quadrant transplanted kidney with redemonstration of a well-circumscribed focus of fluid attenuation, stable in size measuring 29 x 29 mm. Adrenal glands: Unremarkable. Gastrointestinal tract: Colonic diverticulosis without surrounding inflammatory change. Significant fecal stasis within the colon. The transverse colon is redundant, and extends into the pelvis and is distended with aerated stool. Appendix: The appendix is not definitively visualized. However, no pericecal inflammatory change is identified suggest the presence of acute appendicitis. Vasculature: Unremarkable. Lymph nodes: No pathologically enlarged or morphologically suspicious lymph nodes within the retroperitoneum or at the root of the mesentery. Pelvic structures: Thickened jackson within the distended bladder with trace surrounding inflammatory change for which cys titis is suspected. The uterus is anteverted and anteflexed and otherwise unremarkable. Body wall and musculoskeletal: Small fat-containing umbilical hernia. No significant degenerative disease within the lower thoracic or lumbosacral spine. IMPRESSION: Findings for which cystitis is suspected. Nonvisualization of the appendix. Colonic diverticulosis without significant surrounding inflammatory change. Significant fecal stasis within the redundant colon. Stable cysts within the bilateral atrophic [place] kidneys, as well as within the transplant kidney wi thin the right lower quadrant. Reviewed, dictated and finalized at location A. L CLERK IMPRESSION: Findings for which cystitis is suspected. Nonvisualization of the appendix. Colonic diverticulosis without significant surrounding inflammatory change. Significant fecal stasis within the redundant colon. Stable cysts within the bilateral atrophic [place] kidneys, as well as within th e transplant kidney within the right lower quadrant.
[2024-07-06 21:29] VITALS: BP 182/77; PULSE 82; RESP 18; TEMP 36.2; O2SAT 99
[2024-07-06 23:13] LABS: Basophils Percent Auto 0.4 % (0.2-1.2); Eosinophils Absolute Auto 0.1 K/mm3 (0-0.3); Eosinophils Percent Auto 1.6 % (0-4.4); Hematocrit 40.1 % (37.0-47.0); Hemoglobin 13.6 g/dL (12.0-15.0); Immature Granulocyte Absolute 0.02 K/mm3 (0.00-0.031); Immature Granulocyte Percent A 0.3 % (0-0.5); Lymphocytes Absolute Auto 1.44 K/mm3 (0.9-3.2); Lymphocytes Percent Auto 21.1 % (18.3-44.2); Mean Corpuscular HGB Conc 33.9 g/dl (32-36); Mean Corpuscular Hemoglobin 34.3 pg (26-34); Mean Platelet Volume 8.9 fl (7.4-10.4); Monocytes Absolute Auto 0.9 K/mm3 (0.1-0.6); Monocytes Percent Auto 13.8 % (2.6-8.5); Neutrophils Absolute Auto 4.3 K/mm3 (1.3-6.7); Neutrophils Percent Auto 62.8 % (45.5-73.1); Platelet Count Result 176 k/mm3 (150-375); Red Blood Count 3.97 M/mm3 (4.2-5.4); Red Cell Distribution Width 14.9 % (11.5-14.5); White Blood Count 6.8 K/mm3 (4.5-10.0)
[2024-07-06 23:19] LABS: BEDSIDEPREGUCG Negative (Negative)
[2024-07-06 23:19] LABS: Add Urine Microscopic? YES; Appearance Urine Cloudy (Clear); Bacteria Urine 4+ /hpf; Bilirubin Urine Negative (Negative); Blood Urine 2+ (Negative); Color Urine Yellow (Yellow); Glucose Urine UA Negative (Negative); Ketones Urine Negative (Negative); Leukocyte Esterase Ur 3+ LEU/UL (Negative); Nitrate Urine Negative (Negative); Non Pathogenic Casts 0-2; Protein Urine Negative (Negative); RBC Urine 0-2 /hpf (0-2); Specific Grav Ur 1.007 (1.001-1.035); Squamous Epithelial Cell Urine None Seen /hpf (Few); Urobilinogen Urine 0.2 mg/dL (<2.0); WBC Urine >100 /hpf (0-3); pH Urine 5.5 (5.0-9.0)
[2024-07-06 23:26] LABS: Alanine Aminotransferase 18 U/L (6-35); Albumin Level 4.6 g/dL (3.5-5.1); Alkaline Phosphatase 60 U/L (38-126); Anion Gap 4 mmol/L (4-12); Aspartate Amino Transferase 27 U/L (14-36); Blood Urea Nitrogen 26 mg/dL (7-17); Calcium 10.1 mg/dL (8.4-10.2); Carbon Dioxide 29 mmol/L (22-30); Chloride 93 mmol/L (98-107); Estimated Glomerular Filt Rate 54; Glucose 94 mg/dL (65-110); Lipase 864 U/L (23-300); Potassium 4.7 mmol/L (3.4-5.0); Sodium 126 mmol/L (137-145)
[2024-07-07] MEDS: SODIUM CHLORIDE 0.9% IV 1,000 ML 999 ML IV CONT (00:14)
--- NOTE | 2024-07-07 00:36 | ED_ITS ---
HPI - Abdominal Pain General Chief Complaint: Abdominal Pain Stated Complaint: abdominal pain, Vaginal bleeding Time Seen by Provider: 07/06/24 22:48 History of Present Illness HPI narrative: Patient is a 68-year-old female who presents to the emergency department this evening complaining of urinary urgency and dysuria. Patient admits that she does get recurrent UTIs. She is on immunosuppressants secondary to history of renal transplant. Denies any fevers or chills at home, any nausea or vomiting. Patient admits to suprapubic abdominal pain but denies any pain in her right upper and left upper quadrants. Denies any chest pain or shortness of breath. No additional symptoms or concerns at this time. Related Data Home Medications ?Medication ?Instructions ?Recorded ?Confirmed ?Last Taken ?Type rosuvastatin 40 mg tablet (Crestor) 20 mg PO DAILY 12/22/20 01/13/24 Unknown History apixaban 5 mg tablet (Eliquis) 5 mg PO BID 01/13/24 01/13/24 Unknown History azathioprine 50 mg tablet 50 mg PO BID 01/13/24 01/13/24 Unknown History nitrofurantoin 100 mg PO BID 01/13/24 01/13/24 Unknown History monohydrate/macrocrystals 100 mg capsule prednisone 5 mg tablet 5 mg PO DAILY 01/13/24 01/13/24 Unknown History sotalol 80 mg tablet 80 mg PO DAILY 01/13/24 01/13/24 Unknown History tacrolimus 0.75 mg tablet,extended 0.75 mg PO BID 01/13/24 01/13/24 Unknown History release 24 hr (Envarsus XR) Allergies Allergy/AdvReac Type Severity Reaction Status Date / Time atorvastatin Allergy Unknown Unknown Verified 12/22/20 18:51 Review of Systems 2 Review of Systems: All systems are reviewed and are negative unless stated otherwise in the HPI. [facility] Past Medical History Medical History Hyperlipidemia HTN (hypertension) with goal to be determined AV fistula ESRD (end stage renal disease) dialysis Saturday Surgical History Surgical History History of tonsillectomy History of appendectomy Hx of cholecystectomy Family History Family History Mother Cerebrovascular accident Father Diabetes mellitus Social History Social History Social History: The patient is and lives with him. The patient stated that she quit smoking 30 years ago. she is a full code and she has no children. 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 Smoking packs per day: 1 Smoking cigarettes per day: 20.0 Smoking status: Former smoker Tobacco type: cigarettes Alcohol intake: former Drinks per week: 2 Substance use: never Substance use type: does not use Gender identity (if verbalized by the patient): Female Spiritual care concerns: No Exam 2 Narrative: General: Alert, awake, afebrile, in no acute distress. HEENT: PERRL, no rhinorrhea, no post nasal drip, oropharynx clear. Neck: Trachea midline, no JVD, no lymphadenopathy. Cardiovascular: Regular rate and rhythm, no murmurs, rubs or gallops, no peripheral edema. Respiratory: Clear to auscultation bilaterally, no tachypnea, no wheezing, no rhonchi, no rubs, no respiratory distress. Abdomen: Soft, mild suprapubic tenderness to palpation, nondistended, no rebound, no guarding, no peritoneal signs. Musculoskeletal: No joint swelling or deformity, normal muscle tone. Skin: No rashes or petechia, no signs of infection. Psychiatric: Alert and oriented, normal behavior and judgment for situation. Neurological: Alert and oriented to person, place, and time. Follows all commands. No focal deficits, speech is clear and fluent. Course Vital Signs Vital signs: Vital Signs Temperature 97.1 F L 07/06/24 21: Pulse Rate 82 07/06/24 21: Respiratory Rate 18 07/06/24 21: Blood Pressure 182/77 H 07/06/24 21: Pulse Oximetry 99 07/06/24 21: Oxygen Delivery Room Air 07/06/24 21: Temperature 97.1 F L 07/06/24 21: Pulse Rate 82 07/06/24 21:29 Respiratory Rate 18 07/06/24 21: Blood Pressure 182/77 H 07/06/24 21:29 Pulse Oximetry 99 07/06/24 21:29 Oxygen Delivery Room Air 07/06/24 21:29 MDM - Abdominal Pain MDM Narrative Medical decision making narrative: The patient was evaluated by myself in the emergency department. History is obtained from patient who is an independent historian and physical exam was performed. External medical records were reviewed at this time. IV was established and pertinent tests were ordered. Patient was administered 1 L IV fluid bolus with normal saline and 2 mg IV morphine for pain secondary to dysuria as patient states that she cannot have any peridium secondary to her renal transplant. She was also administered 4 mg of IV Zofran for nausea associated with morphine. Laboratory results obtained revealing a sodium level of 126, lipase of 864 otherwise unremarkable. Urinalysis revealed 3+ leuk esterases and 4+ bacteriuria. Patient was informed of these findings at bedside and that she will need to be started on antibiotic for her UTI. She was administered 1 g of IV Rocephin at this time. Imaging studies obtained included CT abdomen pelvis without IV contrast which was independently interpreted by me revealing cystitis and fecal stasis, along with incidental chronic findings otherwise no acute process, which is pending final radiology interpretation. Patient was informed of these findings at bedside, patient states that she is having regular bowel movements. Patient was informed about her elevated lipase and that CT without contrast is not the study of choice to evaluate for acute pancreatitis. Given that the patient is resting comfortably, tolerating p.o. intake and does not complain of any left upper quadrant pain, I did inform her that my suspicion for an acute pancreatitis it is very low and patient and has been present at bedside are both in agreement. Differential diagnosis considerations include UTI, pyelonephritis, constipation, diverticulitis, pancreatitis. Comorbidities impacting this visit include immunosuppression secondary to history of renal transplant. I have evaluated and discussed social determinants of health with the patient that could potentially impact subsequent diagnosis and treatment plans. On repeat assessment of the patient, reevaluation revealed that the patient is doing well and is in no acute distress. Patient symptoms have improved since she arrived to our emergency department. Repeat vital signs were all reviewed and noted to be stable. Differential diagnosis and treatment plan were discussed with the patient at bedside. Patient agrees with discussion and after shared medical decision making agrees with discharge. All questions were answered to the patient's satisfaction. Patient will follow up with her PCP in 3-5 days. Script for cephalexin was sent to patient's pharmacy, a 10 day course given her immunosuppression. Patient was provided with strict return precautions and instructed to return to the emergency department if any new or worsening symptoms develop. The patient was discharged in stable condition. Lab Data 07/06/24 22:53 07/06/24 22:53 Labs: Lab Results 07/06/24 07/06/24 Range/Units 22:53 23:16 WBC 6.8 (4.5-10.0) K/mm3 RBC 3.97 L (4.2-5.4) M/mm3 Hgb 13.6 D (12.0-15.0) g/dL Hct 40.1 (37.0-47.0) % MCV 101.0 H (80-100) fl MCH 34.3 H (26-34) pg MCHC 33.9 (32-36) g/dl RDW 14.9 H (11.5-14.5) % Plt Count 176 (150-375) k/mm3 MPV 8.9 (7.4-10.4) fl Immature Gran % (Auto) 0.3 (0-0.5) % Neut % (Auto) 62.8 (45.5-73.1) % Lymph % (Auto) 21.1 (18.3-44.2) % [place] % (Auto) 13.8 H (2.6-8.5) % Eos % (Auto) 1.6 (0-4.4) % Baso % (Auto) 0.4 (0.2-1.2) % Lymph # (Auto) 1.44 (0.9-3.2) K/mm3 [place] # (Auto) 0.9 H (0.1-0.6) K/mm3 Eos # (Auto) 0.1 (0-0.3) K/mm3 Baso # (Auto) 0.0 (0.0-0.1) K/mm3 Abs Immat Gran (auto) 0.02 (0.00-0.031) K/mm3 Absolute Neuts (auto) 4.3 (1.3-6.7) K/mm3 Absolute Nucleated RBC 0.000 (0.0-0.012) K/mm3 Nucleated RBC % 0.0 (0.0-0.2) % Sodium 126 L (137-145) mmol/L Potassium 4.7 (3.4-5.0) mmol/L Chloride 93 L (98-107) mmol/L Carbon Dioxide 29 (22-30) mmol/L Anion Gap 4 (4-12) mmol/L BUN 26 H D (7-17) mg/dL Creatinine 1.02 H (0.7-1.0) mg/dL Estim Creat Clear Calc Not Reportable Estimated GFR 54 L (59 - ) Glucose 94 (65-110) mg/dL Calcium 10.1 (8.4-10.2) mg/dL Total Bilirubin 1.0 (0.2-1.3) mg/dL AST 27 (14-36) U/L ALT 18 (6-35) U/L Alkaline Phosphatase 60 (38-126) U/L Total Protein 7.0 (6.3-8.2) g/dL Albumin 4.6 (3.5-5.1) g/dL Lipase 864 H (23-300) U/L Urine Color Yellow (Yellow) Urine Appearance Cloudy H (Clear) Urine pH 5.5 (5.0-9.0) Ur Specific [place] 1.007 (1.001-1.035) Urine Protein Negative (Negative) mg/dL Urine Glucose (UA) Negative (Negative) mg/dL Urine Ketones Negative (Negative) mg/dL Ur Blood (Man) 2+ H (Negative) Urine Nitrate Negative (Negative) Urine Bilirubin Negative (Negative) Urine Urobilinogen 0.2 (<2.0) mg/dL Leukocyte Esterase Rfl 3+ H (Negative) RAYMUNDO/UL Urine RBC 0-2 (0-2) /hpf Urine WBC >100 H (0-3) /hpf Ur Squamous Epith Cells None seen (Few) /hpf Urine Bacteria 4+ H /hpf Urine Casts 0-2 POC Urine HCG, Qual Negative (Negative) Imaging Data Radiologist's impression: ITS Impressions Abdomen/Pelvis CT 07/06/24 23:56 IMPRESSION: Findings for which cystitis is suspected. Nonvisualization of the appendix. Colonic diverticulosis without significant surrounding inflammatory change. Significant fecal stasis within the redundant colon. Stable cysts within the bilateral atrophic [place] kidneys, as well as within the transplant kidney within the right lower quadrant. Discharge Plan Discharge Clinical Impression: Cystitis, Hyponatremia Patient Disposition: Home, Self-Care Condition: Improved Instructions: Antibiotic Form, Urinary Tract Infection in Women (DC), Hyponatremia (ED) Additional Instructions: Please follow-up with your family doctor within the next 3-5 days. Return to the emergency department if any new or worsening symptoms develop. Take the prescribed antibiotic as instructed for urinary tract infection. Your sodium level was low today and you were instructed that you need to have this recheck by your primary care physician within the next week. Patient Language: Bengali Prescriptions: New cephalexin 500 mg capsule 500 mg PO Q12H 10 Days Qty: 20 0RF No Action sotalol 80 mg tablet 80 mg PO DAILY prednisone 5 mg tablet 5 mg PO DAILY azathioprine 50 mg tablet 50 mg PO BID nitrofurantoin monohyd/m-cryst 100 mg capsule 100 mg PO BID Eliquis 5 mg tablet 5 mg PO BID Envarsus XR 0.75 mg tablet extended release 24 hr 0.75 mg PO BID rosuvastatin [Crestor] 40 mg Tablet 20 mg PO DAILY Follow-up/Referrals: Giovanni,Michelle Huerta DO [Primary Care Provider] - 3 Days Time of Disposition: 00:34
[2024-07-07] MEDS: MORPHINE SULFATE (*CRX) 2 MG/ML INJ IV PUSH (00:58)
[2024-07-07] MEDS: ONDANSETRON INJ 4 MG/2 ML VIAL IV PUSH (00:58)
[2024-07-07 01:08] VITALS: BP 166/66; PULSE 68; RESP 16; O2SAT 97
[2024-07-07 01:59] VITALS: BP 140/65; PULSE 64; RESP 14; O2SAT 98
== END 2024-07-07 02:03 | disposition home or self-care (01) ==
PROVIDERS: Emergency Provider Emergency Medicine; PCP Family Medicine Sports Medicine
DX: N30.90 Cystitis, unspecified without hematuria (principal); E87.1 Hypo-osmolality and hyponatremia; Z79.01 Long term (current) use of anticoagulants; E78.5 Hyperlipidemia, unspecified; N18.6 End stage renal disease; I12.0 Hypertensive chronic kidney disease with stage 5 chronic kidney disease or end stage renal disease; Z87.891 Personal history of nicotine dependence
CPT/HCPCS: 36415; 74176; 80053; 81001; 81025; 83690; 85025; 87086; 87186; 96365; 96375; 99284; A9270; J0696; J2270; J2405; J7030

== ENCOUNTER 2025-04-02 13:26 | Outpatient (CLI) | payer BC, SELFPAY ==
--- NOTE | 2025-04-02 | ECHO_ITS ---
Patient Info Name: Guerita Durbin Age: 69 years : 1955 Gender: Female Ht: 61 in Wt: 141 lbs BSA: 1.68 m2 HR: 67 bpm BP: 129 / 69 mmHg Heart Rhythm: Sinus Rhythm Technical Quality: Fair Exam Date: 04/02/2025 1:45 PM Patient Status: O Admit Date: 04/02/2025 Exam Type: CA echo doppler color flow Complete two-dimensional, color flow and Doppler transthoracic echocardiogram is performed. Materials Planning Analyst: Radha Atkinson Attending Provider: Michelle Davila Summary 1. Complete two-dimensional, color flow and Doppler transthoracic echocardiogram is performed. 2. Left ventricular systolic function is hyperdynamic, estimated at >70. 3. There is no increased left ventricular wall thickness. 4. The left ventricular diastolic function is grade II diastolic dysfunction. 5. Left atrial chamber dimension is mildly enlarged. 6. There is mild aortic valve stenosis with a peak velocity of 186 cm/s, mean gradient of 8 mmHg, and aortic valve area of 2.0 cm2. 7. There is mild mitral valve regurgitation. 8. There is mild tricuspid valve regurgitation. 9. Mild pulmonary hypertension, estimated pulmonary arterial systolic pressure is 41 mmHg. 10. There is mild aortic atherosclerosis. Left Ventricle Left ventricular chamber dimension is normal. Left ventricular systolic function is hyperdynamic, estimated at >70. There is no increased left ventricular wall thickness. The left ventricular diastolic function is grade II diastolic dysfunction. Right Ventricle Right ventricular chamber dimension is normal. Right ventricular systolic function is normal. Left Atria Left atrial chamber dimension is mildly enlarged. Right Atria Right atrial chamber dimension is normal. Atrial Septum Intact interatrial septum visualized by color flow imaging. Aortic Valve The aortic valve is trileaflet. There is mild aortic valve stenosis with a peak velocity of 186 cm/s, mean gradient of 8 mmHg, and aortic valve area of 2.0 cm2. There is trace aortic valve regurgitation. Pulmonic Valve The pulmonic valve is normal. There is no pulmonic valve stenosis. There is trace pulmonic regurgitation. Mitral Valve The mitral valve has normal leaflets. There is no mitral valve stenosis. There is mild mitral valve regurgitation. Tricuspid Valve The tricuspid valve leaflets are normal. There is no significant tricuspid valve stenosis. There is mild tricuspid valve regurgitation. Mild pulmonary hypertension, estimated pulmonary arterial systolic pressure is 41 mmHg. Pericardium/Pleural The pericardium appears normal. There is no pericardial effusion. Inferior Vena Cava Normal inferior vena cava with >50% collapse upon inspiration consistent with normal right atrial pressure, 10 mmHg. Aorta The aortic root size at the sinus of Valsalva is normal. There is mild aortic atherosclerosis. Left Ventricular Outflow Tract Name Value Normal LVOT 2D LVOT Diameter 2.0 cm LVOT Doppler LVOT Peak Velocity 127 cm/s LVOT Peak Gradient 6 mmHg LVOT Mean Gradient 3 mmHg LVOT VTI 27 cm LVOT VTI/AV VTI Ratio 0.7 LVOT Stroke Volume 81 ml LVOT CO 5.4 l/min LVOT CI 3.2 l/min/m2 Pulmonic Valve Name Value Normal RVOT Doppler RVOT Peak Velocity 118 cm/s RVOT Peak Gradient 6 mmHg PV Doppler PV Peak Velocity 139 cm/s PV Peak Gradient 8 mmHg Mitral Valve Name Value Normal MV Diastolic Function MV E Peak Velocity 131 cm/s MV A Peak Velocity 80 cm/s MV E/A 1.6 MV Decel Time (PW) 197 ms MV Annular TDI MV E/e' (Septal) 29.2 MV E/e' (Lateral) 20.2 MV E/e' (Average) 24.7 Tricuspid Valve Name Value Normal TV Regurgitation Doppler TR Peak Velocity 278 cm/s TR Peak Gradient 31 mmHg Estimated PAP/RSVP RA Pressure 10 mmHg <=5 PA Systolic Pressure 41 mmHg <36 RV Systolic Pressure 41 mmHg <36 TV Annular TDI TV Lateral Shantel s' Velocity 14.3 cm/s >=9.5 Aorta Name Value Normal Ascending Aorta Ao Root Diameter (MM) 2.7 cm Ao Root Diam Index (MM) 1.6 cm/m2 Aortic Valve Name Value Normal AV Doppler AV Peak Velocity 186 cm/s AV Peak Gradient 14 mmHg AV Mean Gradient 8 mmHg AV VTI 41 cm AV Area (Cont Eq VTI) 2.0 cm2 >=3.0 AV Area (Cont Eq Dilip) 2.1 cm2 AV DI (Dilip) 0.68 AV Regurgitation 2D LVOT Area 3.0 cm2 Ventricles Name Value Normal LV Dimensions 2D/MM IVS Diastolic Thickness (2D) 0.9 cm 0.6-1.0 LVID Diastole (2D) 5.0 cm 3.8-5.2 LVIW Diastolic Thickness (2D) 0.8 cm 0.6-0.9 LVID Systole (2D) 2.7 cm 2.2-3.5 LVOT Diameter 2.0 cm LV Mass (2D Cubed) 144.19 g 67.00-162.00 LV Mass Index (2D Cubed) 86 g/m2 43-95 Relative Wall Thickness (2D) 0.32 <=0.42 LV Fractional Shortening/Ejection Fraction 2D/MM LV Fractional Shortening (2D) 45 % 27-45 LV EF (2D Teichholz) 77 % LV Diastolic Volume (4C MOD) 70 ml LV EF (4C MOD) 84 % LV Diastolic Volume (2C MOD) 58 ml LV EF (2C MOD) 83 % LV Diastolic Volume (BP MOD) 65 ml 46-106 LV Diastolic Volume Index (BP MOD) 39 ml/m2 29-61 LV Systolic Volume (BP MOD) 11 ml 14-42 LV Systolic Volume Index (BP MOD) 7 ml/m2 8-24 LV EF (BP MOD) 83 % 54-74 LV Diastolic Length (4C) 6.7 cm LV Systolic Length (4C) 5.0 cm LV Stroke Volume (4C MOD) 59 ml Atria Name Value Normal LA Dimensions LA Dimension (MM) 4.0 cm 2.7-3.8 LA Volume (4C A-L) 58 ml LA Volume (BP A-L) 56 ml RA Dimensions RA Area (4C) 14.0 cm2 <=18.0 Report Signatures
== END 2025-04-02 13:27 | disposition home or self-care (01) ==
PROVIDERS: PCP Family Medicine Sports Medicine; Visit Provider Family Medicine Sports Medicine
DX: R93.1 Abnormal findings on diagnostic imaging of heart and coronary circulation (principal); R11.2 Nausea with vomiting, unspecified; R42 Dizziness and giddiness; R07.9 Chest pain, unspecified
CPT/HCPCS: 93306